=== PATIENT | female | born 1950 | race Caucasian/White ===

== ENCOUNTER 2020-11-06 17:54 | Outpatient (REF) | payer MEDICARE, MEDICAID, SELFPAY ==
--- NOTE | ~2020-11-06 | XR_ITS ---
EXAMINATION: BILATERAL HAND. CLINICAL INFORMATION: The left hand. COMPARISON: None TECHNIQUE: 3 views each hand. FINDINGS: Left hand: There is loss of PIP and DIP joint space of all digits. There is no visible fracture, dislocation. There is diffuse osteopenia. The MCP joints and intercarpal joints are maintained normal. Right hand: There is loss of PIP and DIP joint space all digits without any periarticular spurring. There is diffuse osteopenia. No soft tissue abnormality seen. 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 No visible acute fracture or dislocation.
--- NOTE | ~2020-11-06 | XR_ITS ---
EXAMINATION: BILATERAL HAND. CLINICAL INFORMATION: The left hand. COMPARISON: None TECHNIQUE: 3 views each hand. FINDINGS: Left hand: There is loss of PIP and DIP joint space of all digits. There is no visible fracture, dislocation. There is diffuse osteopenia. The MCP joints and intercarpal joints are maintained normal. Right hand: There is loss of PIP and DIP joint space all digits without any periarticular spurring. There is diffuse osteopenia. No soft tissue abnormality seen. 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 No visible acute fracture or dislocation.
== END 2020-11-06 17:55 | disposition home or self-care (01) ==
LOC: HO.HOSX 17:54
PROVIDERS: Visit Provider Orthopaedic Surgery
DX: M79.642 Pain in left hand (principal); M79.641 Pain in right hand
CPT/HCPCS: 73130

== ENCOUNTER → 2020-11-07 09:30 | Outpatient (BNVA) | payer MEDICARE, MEDICAID, SELFPAY | PROVIDERS: Visit Provider Orthopaedic Surgery | DX: M24.542 Contracture, left hand (principal); M24.541 Contracture, right hand; R20.0 Anesthesia of skin; R20.2 Paresthesia of skin | CPT/HCPCS: 99202 ==